=== PATIENT | female | born 1955 | race African-American/Black ===

== ENCOUNTER 2017-01-30 11:20 | Emergency (ER) | payer OTHER ==
--- NOTE | ~2017-01-30 | CT71 ---
[facility] A Service of [facility] RADIOLOGY TEXT RESULTS PATIENT: JLUIS HALLMAN LOCATION: [facility] : 55 UNIT #: [id number] AGE: [address]: Dragan Driscoll SEX: F ORDER DR: [id number] [place], [place] [address] [id number] MR#: [id number] Acc #: [id number] NAME: JLUIS HALLMAN : 1955 SEX: F STUDY DATE/TIME: 01/30/2017 14:08 UNIT: [id number] ROOM: STUDY DESCRIPTION: CT Head Wo Contrast Ordering Physician: [facility] MEDICAL IMAGING REPORT This report is preliminary unless electronic signature is present EXAM CT head without contrast INDICATIONS Left frontal headache for [address] of the head was performed without contrast. This CT exam was performed with one or more of the following radiation dose reduction techniques: automatic exposure control, adjustment of mA and/or kV according to patient size, and iterative reconstruction. COMPARISON STUDIES Comparison is made with 05/21/2014. FINDINGS There is no evidence for acute hemorrhage. No evidence for acute cortical based infarction, focal mass lesion or hydrocephalus. The included orbits are unremarkable. There is mild mucosal thickening. Multiple ethmoid air cells. Atherosclerotic calcification of the carotid siphons. Bone windows are unremarkable. IMPRESSION No acute intracranial abnormality. Dictated by... Julito Parker M.D. THIS IS AN ELECTRONICALLY VERIFIED REPORT Julito Parker M.D. at 02/04/2017 1:31 PM [facility] A Service of [facility] RADIOLOGY TEXT RESULTS PATIENT: JLUIS HALLMAN LOCATION: [facility] : 55 UNIT #: [id number] AGE: [address]: Dragan Driscoll SEX: F ORDER DR: Jaycee TD: 01/30/2017 20:54 JOB #: [id number] MEDICAL IMAGING REPORT Page 1 of 1 COPY
[~2017-01-30 11:20] MED LIST: MORGIDOX100 MG PO; PERCOCET PO; PHENERGAN PO
== END 2017-01-30 15:20 | disposition home or self-care (01) ==
LOC: CFTX 11:20 → CED 11:20 → CFTX 13:09
DX: S02.5XXA Fracture of tooth (traumatic), initial encounter for closed fracture (principal); K04.7 Periapical abscess without sinus; K02.9 Dental caries, unspecified; X58.XXXA Exposure to other specified factors, initial encounter
CPT/HCPCS: 70450; 99284